=== PATIENT | female | born 2000 | race Caucasian/White ===

== ENCOUNTER 2019-03-07 16:30 | Emergency (ER) | payer BC ==
[~2019-03-07] VITALS: Ht 172.7 cm; Wt 109.1 kg
[~2019-03-07 16:30] MED LIST: AMOXICILLIN500 MG PO; MUPIROCIN2 % EX; ORAPRED ODT15 MG OR; TESSALON PER100 MG PO; no meds
[2019-03-07 17:20] VITALS: BP 158/89
== END 2019-03-07 17:28 | disposition home or self-care (01) | DRG 605 ==
LOC: ED 16:30
PROC: 0HQGXZZ Repair Left Hand Skin, External Approach (ICD-10-PCS; principal; 2019-03-07)
DX: S61.211A Laceration without foreign body of left index finger without damage to nail, initial encounter (principal); W26.8XXA Contact with other sharp object(s), not elsewhere classified, initial encounter; Y93.89 Activity, other specified; Y92.009 Unspecified place in unspecified non-institutional (private) residence as the place of occurrence of the external cause

== ENCOUNTER 2023-12-11 22:04 | Emergency (ER) | payer BC ==
[~2023-12-11] VITALS: Ht 170.2 cm; Wt 109.0 kg
[~2023-12-11 22:04] MED LIST changes: +EQ OMEPRAZOLE20 MG PO
[2023-12-11] MEDS ORDERED: PROTONIX40 M2 PO (22:23)
[2023-12-11] MEDS ORDERED: SEROQUEL50 MG PO (22:25)
[2023-12-11] MEDS ORDERED: ATIVAN2 MG PO (22:25)
[2023-12-11 22:42] LABS: BASO% 0.4 % (0-3); EOS% 0.6 % (0-8); HEMATOCRIT 40.8 % (37.0-47.0); HEMOGLOBIN 13.8 g/dl (12.0-16.0); IMMATURE GRANULOCYTES 0.2 % (0.0-5.0); LYMPH% 23.1 % (15-41); MEAN CELL VOLUME 80.8 fL CALC (80.0-100.0); MEAN CORPUSCULAR HGB 27.3 pG CALC (26.0-32.0); MEAN CORPUSCULAR HGB CONC 33.8 g/dL CAL (32.0-36.0); MONO% 4.8 % (2-13); NEUT# 8.66 thou/uL (2.00-7.15); NEUT% 70.9 % (42-76); RED BLOOD COUNT 5.05 mill/uL (4.20-5.60); RED CELL DISTRI WIDTH 12.2 % (11.5-15.5)
[2023-12-11 22:50] LABS: HCG SERUM/URINE (NEG/POS) NEGATIVE (NEGATIVE)
[2023-12-11 22:53] LABS: ALBUMIN 4.8 g/dL (3.2-5.0); ALKALINE PHOSPHATASE 77 u/l (38-126); ANION GAP 12 (6-22 (CALC)); BILIRUBIN, TOTAL 0.6 mg/dL (0.02-1.3); BUN 11 mg/dL (7-17); BUN/CREATININE RATIO 17 (12-20 (CALC)); CARBON DIOXIDE 27 mmol/l (22-30); CHLORIDE 103 mmol/l (95-108); CREATININE 0.6 mg/dL (0.5-1.0); ETHYL ALCOHOL 0 mg/dl (0-30); GFR FOR AFR.AMER. > 60 ML/MIN (>=60 (CALC)); GFR OTHER RACES > 60 ML/MIN (>=60 (CALC)); MAGNESIUM 1.8 mg/dL (1.6-2.3); POTASSIUM 3.8 mmol/l (3.5-5.1); SGOT/AST 28 u/l (14-36); SODIUM 139 mmol/l (137-146); TOTAL PROTEIN 7.9 g/dL (6.3-8.2)
[2023-12-11 23:15] LABS: URINE BILIRUBIN - DIPSTICK Negative (NEGATIVE); URINE BLOOD DIPSTICK Small (NEGATIVE); URINE GLUCOSE - DIPSTICK Negative (NEGATIVE); URINE KETONE 15 mg/dL (NEGATIVE); URINE LEUK ESTERASE Trace (NEGATIVE); URINE PROTEIN - DIPSTICK Negative (NEG-TRACE); URINE SPECIFIC GRAVITY 1.025; URINE UROBILINOGEN - DIPSTICK 0.2 E.U./dL (0.2)
[2023-12-11 23:28] LABS: URINE COLOR Yellow; URINE NITRITE - DIPSTICK Negative (Negative)
[2023-12-11 23:29] LABS: URINE BACTERIA MODERATE hpf; URINE EPITHELIAL CELLS FEW EPI/hpf (0-FEW)
[2023-12-12 01:15] VITALS: BP 130/83
== END 2023-12-12 07:10 | DRG 880 ==
LOC: ED 22:04
PROVIDERS: Family Medicine
DX: R45.851 Suicidal ideations (principal); F32.A Depression, unspecified; Z20.822 Contact with and (suspected) exposure to COVID-19

== ENCOUNTER 2025-01-19 02:32 | Emergency (ER) | payer BC ==
[~2025-01-19] VITALS: Ht 170.2 cm; Wt 122.0 kg
[~2025-01-19 02:32] MED LIST changes: +ATIVAN2 MG PO; +PROTONIX40 M2 PO; +SEROQUEL50 MG PO
[2025-01-19] MEDS ORDERED: ALUM & MAG HYDROX-SIMETHICONE 30 ML PO ONE (03:05)
[2025-01-19] MEDS ORDERED: SODIUM CHLORIDE 0.9% 1,000 ML IV ONE (03:05)
[2025-01-19] MEDS ORDERED: Pantoprazole Sodium 40 MG VIAL (Protonix) IV ONE (03:05)
[2025-01-19] MEDS ORDERED: PROMETHAZINE HCL 25 MG/ML AMP IV ONE (03:15)
[2025-01-19 03:36] LABS: BASO% 0.4 % (0-3); EOS% 1.3 % (0-8); HEMATOCRIT 41.5 % (37.0-47.0); HEMOGLOBIN 13.8 g/dl (12.0-16.0); IMMATURE GRANULOCYTES 0.3 % (0.0-5.0); LYMPH% 24.9 % (15-41); MEAN CELL VOLUME 83.8 fL CALC (80.0-100.0); MEAN CORPUSCULAR HGB 27.9 pG CALC (26.0-32.0); MEAN CORPUSCULAR HGB CONC 33.3 g/dL CAL (32.0-36.0); MONO% 8.8 % (2-13); NEUT# 7.63 thou/uL (2.00-7.15); NEUT% 64.3 % (42-76); RED BLOOD COUNT 4.95 mill/uL (4.20-5.60); RED CELL DISTRI WIDTH 11.9 % (11.5-15.5)
[2025-01-19 03:39] LABS: URINE BILIRUBIN - DIPSTICK Negative (NEGATIVE); URINE BLOOD DIPSTICK Small (NEGATIVE); URINE GLUCOSE - DIPSTICK Negative (NEGATIVE); URINE KETONE Negative (NEGATIVE); URINE PH 5.5 (4.5-8.0); URINE PROTEIN - DIPSTICK Negative (NEG-TRACE); URINE SPECIFIC GRAVITY >=1.030; URINE UROBILINOGEN - DIPSTICK 0.2 E.U./dL (0.2)
[2025-01-19 03:43] VITALS: BP 98/82
[2025-01-19 03:47] LABS: ALBUMIN 4.7 g/dL (3.2-5.0); BILIRUBIN, TOTAL 0.4 mg/dL (0.02-1.3); CREATININE 0.8 mg/dL (0.5-1.0)
[2025-01-19 03:48] LABS: URINE COLOR Yellow; URINE LEUK ESTERASE Small (NEGATIVE)
[2025-01-19 03:49] LABS: URINE NITRITE - DIPSTICK Negative (Negative)
[2025-01-19 03:51] LABS: URINE BACTERIA MANY hpf; URINE EPITHELIAL CELLS MANY EPI/hpf (0-FEW)
[2025-01-19 03:56] LABS: ACT PARTIAL THROMBO TIME 27.5 SECONDS (20.0-32.5)
[2025-01-19 04:00] VITALS: BP 110/70
[2025-01-19 04:03] LABS: PROTHROMBIN TIME 10.3 SECONDS (9.0-12.5)
[2025-01-19 04:30] VITALS: BP 115/55
[2025-01-19] MEDS ORDERED: PROTONIX40 M2 PO (06:09)
[2025-01-19 06:30] VITALS: BP 121/63
== END 2025-01-19 06:30 | disposition home or self-care (01) | DRG 379 ==
LOC: ED 02:32
PROVIDERS: Family Medicine
DX: K29.71 Gastritis, unspecified, with bleeding (principal); F32.A Depression, unspecified; K44.9 Diaphragmatic hernia without obstruction or gangrene
CPT/HCPCS: J2470; J2550; Q9967